=== PATIENT | female | born 1970 | race Caucasian/White ===

== ENCOUNTER 2016-12-05 09:08 | Emergency (ER) | payer MEDICARE, MEDICAID ==
[~2016-12-05] VITALS: Ht 144.8 cm; Wt 40.9 kg
[~2016-12-05 09:08] MED LIST: DOCU-174 PO; FLUO-191 PO; OLAN20TA2 PO; PANT40TA25 PO; ZIPR60CA2 PO
[2016-12-05] MEDS ORDERED: LEVO25TA9 PO (09:40)
[2016-12-05 11:15] VITALS: BP 113/85
== END 2016-12-05 11:30 | disposition home or self-care (01) ==
LOC: EMS 09:10
DX: S62.616A Displaced fracture of proximal phalanx of right little finger, initial encounter for closed fracture (principal); F17.210 Nicotine dependence, cigarettes, uncomplicated; F15.980 Other stimulant use, unspecified with stimulant-induced anxiety disorder; Z88.8 Allergy status to other drugs, medicaments and biological substances; W19.XXXA Unspecified fall, initial encounter; Y93.89 Activity, other specified; Y92.89 Other specified places as the place of occurrence of the external cause; Y99.8 Other external cause status
CPT/HCPCS: 99284

== ENCOUNTER 2017-10-03 20:54 | Emergency (ER) | payer MEDICARE, MEDICAID ==
[~2017-10-03] VITALS: Ht 144.8 cm; Wt 45.5 kg
[~2017-10-03 20:54] MED LIST changes: -DOCU-174 PO; +DOCU100C33 PO; +LEVO25TA9 PO
[2017-10-03 22:37] VITALS: BP 138/82
[2017-10-03] MEDS ORDERED: POVIDONE-IODINE 10% 15 ML SOLUTION UD TP ONE (23:00)
[2017-10-03] MEDS ORDERED: IBUPROFEN 800 MG TABLET PO ONE (23:00)
[2017-10-03] MEDS ORDERED: PERTUSS(ACELL),DIPH,TET VAC/PF 0.5 ML VIAL IM ONE (23:00)
== END 2017-10-03 23:20 | disposition home or self-care (01) ==
LOC: EMS 20:56
DX: S91.332A Puncture wound without foreign body, left foot, initial encounter (principal); E03.9 Hypothyroidism, unspecified; F17.210 Nicotine dependence, cigarettes, uncomplicated; F15.90 Other stimulant use, unspecified, uncomplicated; Z91.011 Allergy to milk products; W22.8XXA Striking against or struck by other objects, initial encounter; Y93.89 Activity, other specified; Y92.89 Other specified places as the place of occurrence of the external cause; Y99.8 Other external cause status
CPT/HCPCS: 90471; 90715; 99283

== ENCOUNTER 2017-10-13 05:08 | Emergency (ER) | payer MEDICARE, MEDICAID ==
[~2017-10-13] VITALS: Ht 152.4 cm; Wt 59.1 kg
[2017-10-13] MEDS ORDERED: HYDROGEN PEROXIDE 118 ML SOLUTION TP ONE (06:45)
[2017-10-13] MEDS ORDERED: IBUPROFEN 400 MG TABLET PO ONE (07:00)
[2017-10-13 08:04] VITALS: BP 128/80
== END 2017-10-13 09:05 | disposition home or self-care (01) ==
LOC: EMS 05:10
DX: S00.01XA Abrasion of scalp, initial encounter (principal); F17.210 Nicotine dependence, cigarettes, uncomplicated; F15.90 Other stimulant use, unspecified, uncomplicated; Z91.011 Allergy to milk products; W22.8XXA Striking against or struck by other objects, initial encounter; Y93.89 Activity, other specified; Y92.89 Other specified places as the place of occurrence of the external cause; Y99.8 Other external cause status
CPT/HCPCS: 99283

== ENCOUNTER 2018-10-25 13:55 | Emergency (ER) | payer MEDICARE, MEDICAID ==
[~2018-10-25] VITALS: Ht 149.9 cm; Wt 45.5 kg
[2018-10-25 14:01] VITALS: BP 124/92
== END 2018-10-25 16:52 | disposition left against medical advice (07) ==
LOC: EMS 13:55
DX: S01.511A Laceration without foreign body of lip, initial encounter (principal); F31.9 Bipolar disorder, unspecified; F17.210 Nicotine dependence, cigarettes, uncomplicated; F15.90 Other stimulant use, unspecified, uncomplicated; Z91.011 Allergy to milk products; Z85.3 Personal history of malignant neoplasm of breast; Y04.2XXA Assault by strike against or bumped into by another person, initial encounter; Y93.89 Activity, other specified; Y92.89 Other specified places as the place of occurrence of the external cause; Y99.8 Other external cause status

== ENCOUNTER 2019-04-29 00:46 | Emergency (ER) | payer MEDICARE, MEDICAID ==
[~2019-04-29] VITALS: Ht 149.9 cm; Wt 45.5 kg
[2019-04-29] MEDS ORDERED: OLAN10TA3 PO (01:13)
[2019-04-29] MEDS ORDERED: LEVO50 PO (01:14)
[2019-04-29] MEDS ORDERED: FLUO-191 PO (01:14)
[2019-04-29] MEDS ORDERED: PROPARACAINE HCL 0.5% 15 ML OPHTHALMIC SOLUTION OU ONE (04:00)
[2019-04-29] MEDS ORDERED: SODIUM CHLORIDE 0.9% 250 ML IRRIG SOLUTION BOTTLE IRRIG ONE (04:00)
[2019-04-29] MEDS ORDERED: PERTUSS(ACELL),DIPH,TET VAC/PF 0.5 ML VIAL IM ONE (04:00)
[2019-04-29] MEDS ORDERED: LIDOCAINE 1% 10 ML VIAL INJ ONE (05:45)
[2019-04-29 06:31] VITALS: BP 124/79
== END 2019-04-29 07:07 | disposition home or self-care (01) ==
LOC: EMS 00:46
DX: S02.2XXA Fracture of nasal bones, initial encounter for closed fracture (principal); S01.81XA Laceration without foreign body of other part of head, initial encounter; F31.9 Bipolar disorder, unspecified; Z90.710 Acquired absence of both cervix and uterus; Z91.011 Allergy to milk products; Y04.0XXA Assault by unarmed brawl or fight, initial encounter; Y93.89 Activity, other specified; Y92.098 Other place in other non-institutional residence as the place of occurrence of the external cause; Y99.8 Other external cause status
CPT/HCPCS: 12013; 70450; 70486; 81025; 90471; 90715; 99173; 99284; J3490

== ENCOUNTER 2019-05-08 10:56 | Emergency (ER) | payer MEDICARE, MEDICAID ==
[~2019-05-08] VITALS: Ht 149.9 cm; Wt 45.5 kg
[~2019-05-08 10:56] MED LIST changes: -DOCU100C33 PO; -LEVO25TA9 PO; +LEVO50 PO; +OLAN10TA3 PO; -OLAN20TA2 PO; -PANT40TA25 PO; -ZIPR60CA2 PO
[2019-05-08 12:15] VITALS: BP 124/78
== END 2019-05-08 13:02 | disposition home or self-care (01) ==
LOC: EMS 10:56
DX: S01.81XD Laceration without foreign body of other part of head, subsequent encounter (principal); F31.9 Bipolar disorder, unspecified; Z88.8 Allergy status to other drugs, medicaments and biological substances; Z48.02 Encounter for removal of sutures; X58.XXXD Exposure to other specified factors, subsequent encounter

== ENCOUNTER 2020-04-01 08:41 | Emergency (ER) | payer MEDICARE, MEDICAID ==
[~2020-04-01] VITALS: Ht 149.9 cm; Wt 43.2 kg
[2020-04-01 09:44] LABS: BASOPHILS % (AUTO) 0.6 % (0.0-2.0); EOSINOPHILS % (AUTO) 2.3 % (1.0-6.0); HEMATOCRIT 40.9 % (36-46); HEMOGLOBIN 13.5 g/dL (12.0-16.0); LYMPHOCYTES # (AUTO) 2.4 K/uL (1.0-4.8); LYMPHOCYTES % (AUTO) 36.8 % (22.0-44.0); MEAN CORPUSCULAR HEMOGLOBIN 30.2 pg (26.0-34.0); MEAN CORPUSCULAR HGB CONC 32.9 G/dL (31.0-37.0); MEAN CORPUSCULAR VOLUME 92 fL (80-100); MONOCYTES # (AUTO) 0.4 K/uL (0.1-1.0); MONOCYTES % (AUTO) 5.4 % (2.0-9.0); NEUTROPHILS # (AUTO) 3.7 K/uL (1.8-7.7); NEUTROPHILS % (AUTO) 54.9 % (40.0-70.0); PLATELET COUNT (AUTO) 421 K/uL (150-450); RED BLOOD CELL COUNT(AUTO) 4.45 MIL/uL (4.00-5.20); RED CELL DISTRIBUTION WIDTH 12.4 % (11.5-14.5)
[2020-04-01 09:57] LABS: ANION GAP 7 mmol/L (8-16); CALCIUM, TOTAL 9.1 mg/dL (8.8-10.5); CARBON DIOXIDE 31 mmol/L (22-29); CHLORIDE 102 mmol/L (98-107); CREATININE 0.86 mg/dL (0.60-1.30); GLOMERULAR FILTR. RATE CALC > 60 mL/min (>60); GLUCOSE,RANDOM 103 mg/dL (70-110); POTASSIUM 4.5 mmol/L (3.5-5.1); SODIUM SERUM 140 mmol/L (136-145); UREA NITROGEN, BLOOD 16 mg/dL (7-18)
[2020-04-01 10:09] LABS: ALANINE AMINOTRANSFERASE 44 U/L (12-78); ALKALINE PHOSPHATASE 59 U/L (46-116); ASPARTATE AMINOTRANSFERASE 27 U/L (15-37); BILIRUBIN,TOTAL 0.4 mg/dL (0.1-1.0); HCG,QUANTITATIVE 2 mIU/mL (0-6); TOTAL PROTEIN, SERUM 7.5 g/dL (6.4-8.2)
[2020-04-01 13:00] VITALS: BP 125/77
[2020-04-01] MEDS ORDERED: FLUoxetine HCL 20 MG CAPSULE PO ONE (13:30)
[2020-04-01] MEDS ORDERED: OLANZapine 5 MG TABLET PO ONE (13:30)
== END 2020-04-01 14:06 | disposition home or self-care (01) ==
LOC: EMS 08:46
DX: R22.2 Localized swelling, mass and lump, trunk (principal); F31.9 Bipolar disorder, unspecified; Z48.00 Encounter for change or removal of nonsurgical wound dressing; Z90.710 Acquired absence of both cervix and uterus; Z91.011 Allergy to milk products
CPT/HCPCS: 80053; 84702; 85025; 99285; G0480

== ENCOUNTER 2021-02-27 21:55 | Emergency (ER) | payer MEDICARE, MEDICAID ==
[~2021-02-27] VITALS: Ht 149.9 cm; Wt 45.5 kg
[2021-02-27] MEDS ORDERED: SULFAMETHOX/TRIMETH DS 800-160 MG/TABLET PO ONE (23:30)
[2021-02-27] MEDS ORDERED: CEPHALEXIN MONOHYDRATE 500 MG CAPSULE PO ONE (23:30)
[2021-02-27] MEDS ORDERED: LIDOCAINE/PF 2% 5 ML VIAL ID ONE (23:30)
[2021-02-27] MEDS ORDERED: PERTUSS(ACELL),DIPH,TET VAC/PF 0.5 ML SYRINGE IM. ONE (23:30)
[2021-02-27 23:45] VITALS: BP 132/88
[2021-02-28] MEDS ORDERED: IBUPROFEN 600 MG TABLET PO ONE
[2021-02-28] MEDS ORDERED: BACITRACIN 0.9 GM PACKET OINTMENT TP ONE (00:15)
== END 2021-02-28 00:15 | disposition home or self-care (01) ==
LOC: EMS 21:55
DX: L03.012 Cellulitis of left finger (principal); F31.9 Bipolar disorder, unspecified; Z91.011 Allergy to milk products
CPT/HCPCS: 10060; 73140; 90471; 90715; 99284; J3490

== ENCOUNTER 2021-05-11 14:36 | Emergency (ER) | payer MEDICARE, MEDICAID ==
[~2021-05-11] VITALS: Ht 149.9 cm; Wt 44.5 kg
[~2021-05-11 14:36] MED LIST changes: -OLAN10TA3 PO; +OLAN10TA74 PO
[2021-05-11] MEDS ORDERED: IBUPROFEN 600 MG TABLET PO ONE (15:45)
[2021-05-11 16:50] VITALS: BP 119/76
== END 2021-05-11 17:12 | disposition home or self-care (01) ==
LOC: EMS 14:36
DX: S13.4XXA Sprain of ligaments of cervical spine, initial encounter (principal); S09.90XA Unspecified injury of head, initial encounter; F31.9 Bipolar disorder, unspecified; F17.210 Nicotine dependence, cigarettes, uncomplicated; Z91.011 Allergy to milk products; V43.62XA Car passenger injured in collision with other type car in traffic accident, initial encounter; Y93.89 Activity, other specified; Y92.89 Other specified places as the place of occurrence of the external cause; Y99.8 Other external cause status
CPT/HCPCS: 70450; 72125; 99285

== ENCOUNTER 2021-08-27 14:49 | Emergency (ER) | payer MEDICARE, MEDICAID ==
[~2021-08-27] VITALS: Ht 149.9 cm; Wt 54.5 kg
[2021-08-27 14:56] VITALS: BP 101/70
== END 2021-08-27 15:48 | disposition home or self-care (01) ==
LOC: EMS 14:49
DX: L02.512 Cutaneous abscess of left hand (principal); F32.9 Major depressive disorder, single episode, unspecified; F17.210 Nicotine dependence, cigarettes, uncomplicated; Z91.011 Allergy to milk products
CPT/HCPCS: 99283; Z7502

== ENCOUNTER 2021-08-28 19:00 | Emergency (ER) | payer MEDICARE, MEDICAID ==
[~2021-08-28] VITALS: Ht 149.9 cm; Wt 44.5 kg
[2021-08-28 20:38] VITALS: BP 118/62
== END 2021-08-28 20:39 | disposition home or self-care (01) ==
LOC: EMS 19:00
DX: L02.512 Cutaneous abscess of left hand (principal); E03.9 Hypothyroidism, unspecified; F17.210 Nicotine dependence, cigarettes, uncomplicated
CPT/HCPCS: 99283; Z7502

== ENCOUNTER 2022-04-21 01:04 | Emergency (ER) | payer MEDICARE, MEDICAID ==
[~2022-04-21] VITALS: Ht 144.8 cm; Wt 44.5 kg
[~2022-04-21 01:04] MED LIST changes: +FLUO-177 PO; -FLUO-191 PO
[2022-04-21] MEDS ORDERED: LIDOCAINE 1% 10 ML VIAL ID ONE (02:15)
[2022-04-21 02:45] VITALS: BP 106/64
[2022-04-21] MEDS ORDERED: LIDOCAINE/PF 1% 2 ML VIAL ONE (03:00)
[2022-04-21] MEDS ORDERED: CEPH-558 PO (03:55)
== END 2022-04-21 04:18 | disposition home or self-care (01) ==
LOC: EMS 01:05
DX: L73.9 Follicular disorder, unspecified (principal); F31.9 Bipolar disorder, unspecified; E03.9 Hypothyroidism, unspecified; F17.210 Nicotine dependence, cigarettes, uncomplicated; Z88.8 Allergy status to other drugs, medicaments and biological substances; Z79.899 Other long term (current) drug therapy
CPT/HCPCS: 99284; J3490

== ENCOUNTER 2023-05-24 16:54 | Emergency (ER) | payer MEDICARE, MEDICAID ==
[~2023-05-24] VITALS: Ht 149.9 cm; Wt 45.5 kg
[~2023-05-24 16:54] MED LIST changes: +ACET-66 PO; +IBUP-1492 PO
[2023-05-24 17:19] VITALS: BP 126/96; PULSE 107; RESP 18; TEMP 98.4
[2023-05-24] MEDS ORDERED: KETOROLAC TROMETHAMINE 30 MG/ML VIAL IM ONE (17:45)
== END 2023-05-24 18:27 | disposition home or self-care (01) ==
LOC: EMS 17:02
DX: J34.0 Abscess, furuncle and carbuncle of nose (principal); F31.9 Bipolar disorder, unspecified; E03.9 Hypothyroidism, unspecified; F20.9 Schizophrenia, unspecified; F17.210 Nicotine dependence, cigarettes, uncomplicated; F12.90 Cannabis use, unspecified, uncomplicated; Z98.51 Tubal ligation status; Z90.10 Acquired absence of unspecified breast and nipple; Z98.890 Other specified postprocedural states
CPT/HCPCS: 99283; 96372; J1885

== ENCOUNTER 2023-11-05 12:55 | Emergency (ER) | payer MEDICARE, MEDICAID ==
[~2023-11-05] VITALS: Ht 149.9 cm; Wt 44.5 kg
[2023-11-05 12:57] VITALS: TEMP 98.1
[2023-11-05 14:00] VITALS: BP 154/90; PULSE 82; RESP 16
== END 2023-11-05 14:11 | disposition home or self-care (01) ==
LOC: EMS 12:55
DX: R11.2 Nausea with vomiting, unspecified (principal); T88.7XXA Unspecified adverse effect of drug or medicament, initial encounter; F31.9 Bipolar disorder, unspecified; F32.A Depression, unspecified; E03.9 Hypothyroidism, unspecified; F20.9 Schizophrenia, unspecified; F17.210 Nicotine dependence, cigarettes, uncomplicated; F15.90 Other stimulant use, unspecified, uncomplicated; Z98.51 Tubal ligation status; Z98.890 Other specified postprocedural states
CPT/HCPCS: 99281; Z7502

== ENCOUNTER 2023-12-20 16:06 | Inpatient (IN) | payer MEDICARE, MEDICAID ==
[~2023-12-20] VITALS: Ht 142.2 cm; Wt 47.3 kg
[2023-12-20 18:18] LABS: BASOPHILS % (AUTO) 0.6 % (0.0-2.0); EOSINOPHILS % (AUTO) 1.3 % (1.0-6.0); HEMATOCRIT 33.2 % (36-46); HEMOGLOBIN 11.5 g/dL (12.0-16.0); LYMPHOCYTES # (AUTO) 2.9 K/uL (1.0-4.8); LYMPHOCYTES % (AUTO) 34.4 % (22.0-44.0); MEAN CORPUSCULAR HEMOGLOBIN 31.2 pg (26.0-34.0); MEAN CORPUSCULAR HGB CONC 34.5 G/dL (31.0-37.0); MEAN CORPUSCULAR VOLUME 90 fL (80-100); MONOCYTES # (AUTO) 0.7 K/uL (0.1-1.0); MONOCYTES % (AUTO) 8.1 % (2.0-9.0); NEUTROPHILS # (AUTO) 4.7 K/uL (1.8-7.7); NEUTROPHILS % (AUTO) 55.6 % (40.0-70.0); PLATELET COUNT (AUTO) 484 K/uL (150-450); RED BLOOD CELL COUNT(AUTO) 3.68 MIL/uL (4.00-5.20); RED CELL DISTRIBUTION WIDTH 12.8 % (11.5-14.5); WHITE BLOOD COUNT (AUTO) 8.4 K/uL (4.5-11.0)
[2023-12-20 18:31] LABS: ANION GAP 8 mmol/L (8-16); CALCIUM, TOTAL 9.8 mg/dL (8.8-10.5); CARBON DIOXIDE 30 mmol/L (22-29); CHLORIDE 103 mmol/L (98-107); CREATININE 0.93 mg/dL (0.60-1.30); GLOMERULAR FILTR. RATE CALC > 60 mL/min (>60); GLUCOSE,RANDOM 95 mg/dL (70-110); POTASSIUM 3.6 mmol/L (3.5-5.1); SODIUM SERUM 141 mmol/L (136-145); UREA NITROGEN, BLOOD 26 mg/dL (7-18)
[2023-12-20 18:37] LABS: ALANINE AMINOTRANSFERASE 39 U/L (12-78); ALBUMIN 3.8 g/dL (3.4-5.0); ALKALINE PHOSPHATASE 84 U/L (46-116); ASPARTATE AMINOTRANSFERASE 37 U/L (15-37); BILIRUBIN,TOTAL 0.4 mg/dL (0.1-1.0); TOTAL PROTEIN, SERUM 7.7 g/dL (6.4-8.2)
[2023-12-20 18:50] LABS: ALCOHOL, BLOOD (SERUM) < 3 mg/dL (0-10)
[2023-12-20 18:56] LABS: COVID AG,FIA SOURCE NASAL SWAB
[2023-12-20 19:31] LABS: SARS-COV2 (COVID) ANTIGEN,FIA Negative (Negative)
[2023-12-20] MEDS: OLANZapine 5 MG TABLET PO ONE (21:25)
[2023-12-21 02:25] VITALS: BP 113/60; PULSE 67; RESP 18; TEMP 97.2
[2023-12-21] MEDS ORDERED: INFLUENZA VIRUS VACCINE QVS 2023-24 (6MO+)/PF 60 MCG/0.5 ML SYRINGE IM. ONE (04:30)
[2023-12-21 08:37] LABS: HEMOGLOBIN A1C 5.8 % (3.8-5.6)
[2023-12-21 08:58] LABS: CHOL/HDL RATIO 2.1 (3.9-5.7); FREE T4 (FREE THYROXINE) 1.09 ng/dL (0.76-1.46); THYROID STIMULATING HORMONE 3.46 uIU/mL (0.36-3.74)
[2023-12-21] MEDS: FLUoxetine HCL 20 MG CAPSULE PO SCH (10:25)
[2023-12-21] MEDS: OLANZapine 10 MG TABLET PO SCH (10:25)
[2023-12-21] MEDS ORDERED: GuaiFENesin/D-METHORPHAN [SUGAR-FREE] 200-20MG/10 ML SYRUP UDCUP PO PRN (12:00)
[2023-12-21] MEDS ORDERED: CloNIDine HCL 0.1 MG TABLET PO PRN (12:00)
[2023-12-21] MEDS ORDERED: ACETAMINOPHEN 325 MG TABLET PO PRN (12:00)
[2023-12-21] MEDS ORDERED: PETROLATUM,WHITE 28 GM JELLY TP PRN (12:00)
[2023-12-21] MEDS ORDERED: DOCUSATE SODIUM 100 MG CAPSULE PO PRN (12:00)
[2023-12-21] MEDS ORDERED: MAGNESIUM HYDROXIDE SUSPENSION 30 ML UDCUP PO PRN (12:00)
[2023-12-21] MEDS ORDERED: ONDANSETRON HCL 4 MG TABLET PO PRN (12:00)
[2023-12-21] MEDS ORDERED: ALBUTEROL SULFATE HFA 90 MCG/PUFF 8 GM INHALER IH PRN (12:00)
[2023-12-21] MEDS ORDERED: MAG HYDROX/ALUMINUM HYD/SIMETH ES 30 ML SUSPENSION UDCUP PO PRN (12:00)
[2023-12-21] MEDS ORDERED: LOPERAMIDE HCL 2 MG CAPSULE PO PRN (12:00)
[2023-12-21] MEDS ORDERED: IBUPROFEN 400 MG TABLET PO PRN (12:00)
[2023-12-21 21:23] VITALS: BP 96/60; PULSE 68; TEMP 98; O2SAT 96
[2023-12-22] MEDS: LEVOTHYROXINE SODIUM 50 MCG TABLET PO SCH (06:39)
[2023-12-22 08:29] VITALS: RESP 18
[2023-12-22 20:38] VITALS: BP 113/75; PULSE 70; RESP 17; TEMP 98.4; O2SAT 97
[2023-12-23] MEDS: ZOLPIDEM TARTRATE 10 MG TABLET PO PRN (03:02)
[2023-12-23 08:17] VITALS: BP 117/69; PULSE 79; RESP 16; TEMP 98; O2SAT 98
[2023-12-23] MEDS: LORazepam 2 MG TABLET PO PRN (15:54)
[2023-12-23 20:04] VITALS: RESP 17
[2023-12-23] MEDS: OLANZapine 10 MG TABLET PO SCH (20:10)
[2023-12-24 23:42] VITALS: RESP 17
[2023-12-25 08:16] VITALS: BP 110/69; PULSE 79; RESP 16; TEMP 97.8; O2SAT 96
[2023-12-25 09:21] LABS: ALANINE AMINOTRANSFERASE 22 U/L (12-78); ALBUMIN 3.4 g/dL (3.4-5.0); ALKALINE PHOSPHATASE 72 U/L (46-116); ANION GAP 4 mmol/L (8-16); ASPARTATE AMINOTRANSFERASE 17 U/L (15-37); BILIRUBIN,TOTAL 0.4 mg/dL (0.1-1.0); CALCIUM, TOTAL 9.7 mg/dL (8.8-10.5); CARBON DIOXIDE 31 mmol/L (22-29); CHLORIDE 99 mmol/L (98-107); CHOLESTEROL 225 mg/dL (131-200); CREATININE 0.68 mg/dL (0.60-1.30); FREE T4 (FREE THYROXINE) 0.97 ng/dL (0.76-1.46); GLOMERULAR FILTR. RATE CALC > 60 mL/min (>60); GLUCOSE,RANDOM 182 mg/dL (70-110); HDL CHOLESTEROL 76 mg/dL (40-60); LDL CHOL (CALC.) 133 mg/dL (0-130); POTASSIUM 4.7 mmol/L (3.5-5.1); SODIUM SERUM 134 mmol/L (136-145); THYROID STIMULATING HORMONE 2.39 uIU/mL (0.36-3.74); TOTAL PROTEIN, SERUM 7.8 g/dL (6.4-8.2); TRIGLYCERIDES 81 mg/dL (15-150); UREA NITROGEN, BLOOD 22 mg/dL (7-18)
[2023-12-25 20:29] VITALS: BP 125/67; PULSE 121; RESP 15; TEMP 98.6; O2SAT 95
[2023-12-26 08:20] VITALS: BP 125/78; PULSE 100; RESP 16; TEMP 98.2; O2SAT 99
[2023-12-26] MEDS: NICOTINE 14 MG/24 HOUR PATCH TD PRN (10:24)
[2023-12-26] MEDS ORDERED: LEVO50 PO (12:52)
[2023-12-26] MEDS ORDERED: OLAN10TA74 PO (12:52)
[2023-12-26] MEDS ORDERED: FLUO20CA36 PO (12:52)
== END 2023-12-26 16:20 | disposition home or self-care (01) | DRG 885 ==
LOC: EMS 16:12 → B3A 12-21 00:27
PROVIDERS: ADMIT Psychiatry & Neurology Psychiatry; ATTEND Psychiatry & Neurology Psychiatry
PROC: GZHZZZZ Group Psychotherapy (ICD-10-PCS; principal; 2023-12-24)
PROC: GZ51ZZZ Individual Psychotherapy, Behavioral (ICD-10-PCS; 2023-12-24)
DX: F20.0 Paranoid schizophrenia (principal); R45.851 Suicidal ideations; G47.00 Insomnia, unspecified; Z20.822 Contact with and (suspected) exposure to COVID-19; D64.9 Anemia, unspecified; E03.9 Hypothyroidism, unspecified; F15.10 Other stimulant abuse, uncomplicated; Z87.891 Personal history of nicotine dependence
CPT/HCPCS: 80053; 80061; 83036; 84439; 84443; 84703; 85025; 99285; G0480

== ENCOUNTER 2024-08-19 06:05 | Emergency (ER) | payer MEDICARE, MEDICAID ==
[~2024-08-19] VITALS: Ht 149.9 cm; Wt 44.5 kg
[~2024-08-19 06:05] MED LIST changes: -ACET-66 PO; +AMOX-457 PO; +DOXY-354 PO; -FLUO-177 PO; +FLUO-418 PO; -IBUP-1492 PO; +IBUP-1554 PO
[2024-08-19 06:14] VITALS: TEMP 98.9
[2024-08-19 07:00] LABS: BASOPHILS % (AUTO) 0.6 % (0.0-2.0); EOSINOPHILS % (AUTO) 1.6 % (1.0-6.0); HEMATOCRIT 39.7 % (36-46); HEMOGLOBIN 13.3 g/dL (12.0-16.0); LYMPHOCYTES # (AUTO) 2.1 K/uL (1.0-4.8); LYMPHOCYTES % (AUTO) 35.9 % (22.0-44.0); MEAN CORPUSCULAR HEMOGLOBIN 30.7 pg (26.0-34.0); MEAN CORPUSCULAR HGB CONC 33.5 G/dL (31.0-37.0); MEAN CORPUSCULAR VOLUME 92 fL (80-100); MONOCYTES # (AUTO) 0.3 K/uL (0.1-1.0); MONOCYTES % (AUTO) 5.6 % (2.0-9.0); NEUTROPHILS # (AUTO) 3.3 K/uL (1.8-7.7); NEUTROPHILS % (AUTO) 56.3 % (40.0-70.0); PLATELET COUNT (AUTO) 503 K/uL (150-450); RED BLOOD CELL COUNT(AUTO) 4.32 MIL/uL (4.00-5.20); RED CELL DISTRIBUTION WIDTH 13.2 % (11.5-14.5); WHITE BLOOD COUNT (AUTO) 5.9 K/uL (4.5-11.0)
[2024-08-19 07:09] LABS: ANION GAP 6 mmol/L (8-16); CALCIUM, TOTAL 9.3 mg/dL (8.8-10.5); CARBON DIOXIDE 30 mmol/L (22-29); CHLORIDE 104 mmol/L (98-107); GLOMERULAR FILTR. RATE CALC > 60 mL/min (>60); GLUCOSE,RANDOM 126 mg/dL (70-110); POTASSIUM 4.1 mmol/L (3.5-5.1); SODIUM SERUM 140 mmol/L (136-145); UREA NITROGEN, BLOOD 19 mg/dL (7-18)
[2024-08-19 07:14] LABS: ALANINE AMINOTRANSFERASE 26 U/L (12-78); ALBUMIN 3.5 g/dL (3.4-5.0); ALKALINE PHOSPHATASE 79 U/L (46-116); ASPARTATE AMINOTRANSFERASE 17 U/L (15-37); BILIRUBIN,TOTAL 0.5 mg/dL (0.1-1.0); LIPASE 38 U/L (16-77); TOTAL PROTEIN, SERUM 7.3 g/dL (6.4-8.2)
[2024-08-19 08:22] LABS: APPEARANCE,URINE CLEAR (CLEAR); BILIRUBIN,URINE NEGATIVE (NEGATIVE); COLOR,URINE YELLOW (YELLOW); GLUCOSE, URINE (UA) NEGATIVE (NEGATIVE); KETONES,URINE NEGATIVE (NEGATIVE); LEUKOCYTE ESTERASE ,URINE NEGATIVE (NEGATIVE); NITRATE,URINE NEGATIVE (NEGATIVE); OCCULT BLOOD,URINE TRACE (NEGATIVE); PROTEIN,URINE TRACE mg/dL (NEGATIVE); SPECIFIC GRAVITIY, URINE 1.024 (1.003-1.030); UROBILINOGEN,URINE <=1.0 mg/dL (<=1.0)
[2024-08-19 08:32] LABS: BACTERIA,URINE None Seen /HPF (None Seen); RBC,URINE 0-2 /HPF (0-2); SQUAMOUS EPITHELIAL CELL,UR Few /LPF (None Seen); WBC,URINE 0-2 /HPF (0-5)
[2024-08-19 08:40] VITALS: BP 131/92; PULSE 95; RESP 16; O2SAT 98
== END 2024-08-19 09:13 | disposition home or self-care (01) ==
LOC: EMS 06:05
DX: K59.00 Constipation, unspecified (principal); F31.9 Bipolar disorder, unspecified; E03.9 Hypothyroidism, unspecified; F17.210 Nicotine dependence, cigarettes, uncomplicated; Z98.51 Tubal ligation status; F15.90 Other stimulant use, unspecified, uncomplicated; Z98.890 Other specified postprocedural states
CPT/HCPCS: 80048; 80076; 81001; 83690; 85025; 99283

== ENCOUNTER 2024-08-28 19:59 | Emergency (ER) | payer MEDICARE, MEDICAID ==
[~2024-08-28] VITALS: Ht 149.9 cm; Wt 44.5 kg
[~2024-08-28 19:59] MED LIST changes: -AMOX-457 PO; -DOXY-354 PO
[2024-08-28 20:04] VITALS: TEMP 98.3
[2024-08-28 22:12] LABS: COVID AG,FIA SOURCE NASAL SWAB
[2024-08-28 22:18] LABS: BASOPHILS % (AUTO) 0.7 % (0.0-2.0); EOSINOPHILS % (AUTO) 2.2 % (1.0-6.0); HEMATOCRIT 35.1 % (36-46); HEMOGLOBIN 11.9 g/dL (12.0-16.0); LYMPHOCYTES # (AUTO) 3.2 K/uL (1.0-4.8); LYMPHOCYTES % (AUTO) 40.5 % (22.0-44.0); MEAN CORPUSCULAR HEMOGLOBIN 30.7 pg (26.0-34.0); MEAN CORPUSCULAR HGB CONC 33.9 G/dL (31.0-37.0); MEAN CORPUSCULAR VOLUME 91 fL (80-100); MONOCYTES # (AUTO) 0.5 K/uL (0.1-1.0); MONOCYTES % (AUTO) 6.3 % (2.0-9.0); NEUTROPHILS % (AUTO) 50.3 % (40.0-70.0); PLATELET COUNT (AUTO) 456 K/uL (150-450); RED BLOOD CELL COUNT(AUTO) 3.88 MIL/uL (4.00-5.20); RED CELL DISTRIBUTION WIDTH 13.2 % (11.5-14.5); WHITE BLOOD COUNT (AUTO) 7.9 K/uL (4.5-11.0)
[2024-08-28 22:31] LABS: SARS-COV2 (COVID) ANTIGEN,FIA Negative (Negative)
[2024-08-28 22:39] LABS: ANION GAP 8 mmol/L (8-16); CALCIUM, TOTAL 8.8 mg/dL (8.8-10.5); CARBON DIOXIDE 28 mmol/L (22-29); CHLORIDE 104 mmol/L (98-107); CREATININE 0.73 mg/dL (0.60-1.30); GLOMERULAR FILTR. RATE CALC > 60 mL/min (>60); GLUCOSE,RANDOM 90 mg/dL (70-110); POTASSIUM 3.4 mmol/L (3.5-5.1); SODIUM SERUM 140 mmol/L (136-145); UREA NITROGEN, BLOOD 21 mg/dL (7-18)
[2024-08-28 22:42] LABS: ALCOHOL, BLOOD (SERUM) < 3 mg/dL (0-10)
[2024-08-28] MEDS: OLANZapine 10 MG TABLET PO ONE (23:21)
[2024-08-29] MEDS: POTASSIUM CHLORIDE 20 MEQ ER TABLET PO ONE (01:30)
[2024-08-29 04:47] VITALS: BP 125/84; PULSE 82; RESP 14; O2SAT 98
== END 2024-08-29 05:13 | disposition home or self-care (01) ==
LOC: EMS 19:59
DX: F31.9 Bipolar disorder, unspecified (principal); E87.6 Hypokalemia; F22 Delusional disorders; F41.9 Anxiety disorder, unspecified; E03.9 Hypothyroidism, unspecified; F17.210 Nicotine dependence, cigarettes, uncomplicated; F15.90 Other stimulant use, unspecified, uncomplicated; Z98.51 Tubal ligation status; Z98.890 Other specified postprocedural states; Z20.822 Contact with and (suspected) exposure to COVID-19
CPT/HCPCS: 99283; 87426; 80048; 85025; 36415; G0480

== ENCOUNTER 2025-06-09 02:36 | Emergency (ER) | payer MEDICARE, MEDICAID ==
[~2025-06-09] VITALS: Ht 144.8 cm; Wt 41.4 kg
[2025-06-09 03:05] VITALS: BP 139/95; PULSE 90; RESP 16; TEMP 97.9; O2SAT 100
== END 2025-06-09 03:54 | disposition left against medical advice (07) ==
LOC: EMS 02:36
DX: R21 Rash and other nonspecific skin eruption (principal); Z53.21 Procedure and treatment not carried out due to patient leaving prior to being seen by health care provider

== ENCOUNTER 2025-06-15 01:03 | Emergency (ER) | payer MEDICARE, MEDICAID ==
[~2025-06-15] VITALS: Ht 144.8 cm; Wt 40.9 kg
[2025-06-15 03:10] VITALS: TEMP 97.905272
[2025-06-15] MEDS ORDERED: SULF1TAB42 PO (04:09)
[2025-06-15 04:10] VITALS: BP 118/81; PULSE 86; RESP 19; O2SAT 99
[2025-06-15] MEDS: LIDOCAINE/PF 1% 2 ML VIAL IM ONE (04:15)
[2025-06-15] MEDS: CefTRIAXone SODIUM 1 GM/VIAL IM ONE (04:15)
== END 2025-06-15 05:48 | disposition home or self-care (01) ==
LOC: EMS 05:29
DX: N61.0 Mastitis without abscess (principal); F31.9 Bipolar disorder, unspecified; E03.9 Hypothyroidism, unspecified; F17.210 Nicotine dependence, cigarettes, uncomplicated; F15.90 Other stimulant use, unspecified, uncomplicated; Z98.51 Tubal ligation status; Z90.13 Acquired absence of bilateral breasts and nipples; Z85.3 Personal history of malignant neoplasm of breast; Z79.899 Other long term (current) drug therapy
CPT/HCPCS: 99283; 96372; J0696; J3490

== ENCOUNTER 2025-07-20 17:27 | Emergency (ER) | payer MEDICARE, MEDICAID ==
[~2025-07-20 17:27] MED LIST changes: +SULF1TAB42 PO
== END 2025-07-20 19:48 | disposition left against medical advice (07) ==
LOC: EMS 17:27
DX: R44.2 Other hallucinations (principal); Z53.21 Procedure and treatment not carried out due to patient leaving prior to being seen by health care provider
CPT/HCPCS: 99281; Z7502

== ENCOUNTER 2025-07-20 20:25 | Emergency (ER) | payer MEDICARE, MEDICAID ==
[~2025-07-20] VITALS: Ht 149.9 cm; Wt 38.6 kg
[2025-07-20 22:30] LABS: PLATELET COUNT (AUTO) 467 K/uL (150-450); RED BLOOD CELL COUNT(AUTO) 4.02 MIL/uL (4.00-5.20); RED CELL DISTRIBUTION WIDTH 13.1 % (11.5-14.5); WHITE BLOOD COUNT (AUTO) 8.0 K/uL (4.5-11.0)
[2025-07-20 22:33] LABS: CALCIUM, TOTAL 9.0 mg/dL (8.8-10.5); CREATININE 0.69 mg/dL (0.60-1.30); GLOMERULAR FILTR. RATE CALC > 60 mL/min (>60); GLUCOSE,RANDOM 127 mg/dL (70-110); SODIUM SERUM 138 mmol/L (136-145); UREA NITROGEN, BLOOD 31 mg/dL (7-18)
[2025-07-20 23:19] VITALS: BP 123/88; PULSE 88; RESP 17; TEMP 97.8; O2SAT 98
[2025-07-20 23:19] LABS: COVID AG,FIA SOURCE NASAL SWAB
[2025-07-20 23:24] LABS: SARS-COV2 (COVID) ANTIGEN,FIA Negative (Negative)
== END 2025-07-21 00:59 | disposition home or self-care (01) ==
LOC: EMS 20:25
DX: F15.10 Other stimulant abuse, uncomplicated (principal); E03.9 Hypothyroidism, unspecified; F31.9 Bipolar disorder, unspecified; F17.210 Nicotine dependence, cigarettes, uncomplicated; Z79.899 Other long term (current) drug therapy; Z85.3 Personal history of malignant neoplasm of breast; Z90.11 Acquired absence of right breast and nipple; Z98.51 Tubal ligation status; Z20.822 Contact with and (suspected) exposure to COVID-19
CPT/HCPCS: 99283; 87426; 80048; 85025; 36415; G0480

== ENCOUNTER 2025-08-02 06:37 | Emergency (ER) | payer MEDICARE, MEDICAID ==
[~2025-08-02] VITALS: Ht 144.8 cm; Wt 38.6 kg
[2025-08-02 06:49] VITALS: BP 119/86; PULSE 97; RESP 18; TEMP 98.2; O2SAT 99
== END 2025-08-02 08:34 | disposition left against medical advice (07) ==
LOC: EMS 06:37
DX: F31.9 Bipolar disorder, unspecified (principal); E03.9 Hypothyroidism, unspecified; F17.210 Nicotine dependence, cigarettes, uncomplicated; F15.90 Other stimulant use, unspecified, uncomplicated; Z79.899 Other long term (current) drug therapy; Z85.3 Personal history of malignant neoplasm of breast; Z90.11 Acquired absence of right breast and nipple; Z98.51 Tubal ligation status
CPT/HCPCS: 99282; Z7502

== ENCOUNTER 2025-08-02 09:25 | Emergency (ER) | payer MEDICARE, MEDICAID ==
[~2025-08-02] VITALS: Ht 147.3 cm; Wt 45.5 kg
[2025-08-02 09:34] VITALS: BP 116/86; PULSE 103; RESP 18; TEMP 98.1; O2SAT 99
[2025-08-02 11:14] LABS: PLATELET COUNT (AUTO) 406 K/uL (150-450); RED BLOOD CELL COUNT(AUTO) 3.72 MIL/uL (4.00-5.20); RED CELL DISTRIBUTION WIDTH 13.0 % (11.5-14.5); WHITE BLOOD COUNT (AUTO) 6.7 K/uL (4.5-11.0)
[2025-08-02 11:28] LABS: CALCIUM, TOTAL 8.9 mg/dL (8.8-10.5); CREATININE 0.45 mg/dL (0.60-1.30); GLOMERULAR FILTR. RATE CALC > 60 mL/min (>60); GLUCOSE,RANDOM 104 mg/dL (70-110); SODIUM SERUM 140 mmol/L (136-145); UREA NITROGEN, BLOOD 14 mg/dL (7-18)
== END 2025-08-02 12:47 ==
LOC: EMS 09:25
DX: S30.11XA Contusion of abdominal wall, initial encounter (principal); F31.9 Bipolar disorder, unspecified; E03.9 Hypothyroidism, unspecified; F17.210 Nicotine dependence, cigarettes, uncomplicated; F15.90 Other stimulant use, unspecified, uncomplicated; Z59.00 Homelessness unspecified; Z79.899 Other long term (current) drug therapy; Z85.3 Personal history of malignant neoplasm of breast; Z90.11 Acquired absence of right breast and nipple; Z98.51 Tubal ligation status; Z91.0110 Allergy to milk products, unspecified; X58.XXXA Exposure to other specified factors, initial encounter; Y93.89 Activity, other specified; Y92.89 Other specified places as the place of occurrence of the external cause; Y99.8 Other external cause status
CPT/HCPCS: 99285; 80048; 84703; 85025; 36415; G0480

== ENCOUNTER 2025-08-13 18:23 | Emergency (ER) | payer MEDICARE, MEDICAID ==
[~2025-08-13] VITALS: Ht 144.8 cm; Wt 47.7 kg
[2025-08-13 18:50] VITALS: BP 105/80; PULSE 98; RESP 18; TEMP 98.1; O2SAT 99
[2025-08-13] MEDS ORDERED: CALC500T37 PO (19:22)
[2025-08-13] MEDS ORDERED: SULF1TAB94 PO (19:22)
[2025-08-13] MEDS: SULFAMETHOX/TRIMETH DS 800-160 MG/TABLET PO ONE (20:09)
[2025-08-13] MEDS: CALCIUM CARBONATE 500 MG CHEWABLE TABLET CHEW ONE (20:09)
[2025-08-13] MEDS: BACITRACIN 0.9 GM PACKET OINTMENT TP ONE (20:10)
== END 2025-08-13 20:16 | disposition home or self-care (01) ==
LOC: EMS 18:23
DX: L98.499 Non-pressure chronic ulcer of skin of other sites with unspecified severity (principal); S60.921A Unspecified superficial injury of right hand, initial encounter; K21.9 Gastro-esophageal reflux disease without esophagitis; F31.9 Bipolar disorder, unspecified; F17.210 Nicotine dependence, cigarettes, uncomplicated; F15.90 Other stimulant use, unspecified, uncomplicated; Z90.11 Acquired absence of right breast and nipple; Z85.3 Personal history of malignant neoplasm of breast; Z79.899 Other long term (current) drug therapy; X58.XXXA Exposure to other specified factors, initial encounter; Y93.89 Activity, other specified; Y92.89 Other specified places as the place of occurrence of the external cause; Y99.8 Other external cause status
CPT/HCPCS: 99283

== ENCOUNTER 2025-08-31 09:24 | Emergency (ER) | payer MEDICARE, MEDICAID ==
[~2025-08-31] VITALS: Ht 144.8 cm; Wt 40.0 kg
[~2025-08-31 09:24] MED LIST changes: +CALC500T37 PO; +SULF1TAB94 PO
[2025-08-31] MEDS: ACETAMINOPHEN 500 MG TABLET PO ONE (13:14)
[2025-08-31] MEDS: KETOROLAC TROMETHAMINE 30 MG/ML VIAL IM ONE (13:14)
[2025-08-31 13:15] VITALS: BP 112/96; PULSE 99; RESP 18; TEMP 97.7; O2SAT 100
[2025-08-31] MEDS ORDERED: IBUP-1492 PO (13:17)
[2025-08-31] MEDS ORDERED: ACET-2247 PO (13:17)
== END 2025-08-31 13:36 | disposition home or self-care (01) ==
LOC: EMS 09:24
DX: S92.354A Nondisplaced fracture of fifth metatarsal bone, right foot, initial encounter for closed fracture (principal); F31.9 Bipolar disorder, unspecified; F15.90 Other stimulant use, unspecified, uncomplicated; F17.210 Nicotine dependence, cigarettes, uncomplicated; Z85.3 Personal history of malignant neoplasm of breast; Z90.11 Acquired absence of right breast and nipple; Z79.899 Other long term (current) drug therapy; W22.8XXA Striking against or struck by other objects, initial encounter; Y93.89 Activity, other specified; Y92.89 Other specified places as the place of occurrence of the external cause; Y99.8 Other external cause status
CPT/HCPCS: 99283; 73630; 96372; J1885

== ENCOUNTER 2025-10-09 09:21 | Emergency (ER) | payer MEDICARE, MEDICAID ==
[~2025-10-09] VITALS: Ht 144.8 cm; Wt 44.5 kg
[~2025-10-09 09:21] MED LIST changes: +ACET-2247 PO; +IBUP-1492 PO; -IBUP-1554 PO; -SULF1TAB42 PO
[2025-10-09 09:34] VITALS: TEMP 96.9
[2025-10-09] MEDS: ACETAMINOPHEN 325 MG TABLET PO ONE (09:45)
[2025-10-09] MEDS: IBUPROFEN 400 MG TABLET PO ONE (09:45)
[2025-10-09] MEDS: MAG HYDROX/ALUMINUM HYD/SIMETH 30 ML SUSPENSION UDCUP PO ONE (10:00)
[2025-10-09] MEDS: FAMOTIDINE 20 MG TABLET PO ONE (10:00)
[2025-10-09 11:15] VITALS: BP 121/77; PULSE 89; RESP 17; O2SAT 99
[2025-10-09] MEDS ORDERED: IBUP-1506 PO (11:17)
[2025-10-09] MEDS ORDERED: ACET-2247 PO (11:17)
== END 2025-10-09 12:19 | disposition home or self-care (01) ==
LOC: EMS 09:21
DX: S63.601A Unspecified sprain of right thumb, initial encounter (principal); F31.9 Bipolar disorder, unspecified; F17.210 Nicotine dependence, cigarettes, uncomplicated; F15.90 Other stimulant use, unspecified, uncomplicated; Z90.11 Acquired absence of right breast and nipple; Z85.3 Personal history of malignant neoplasm of breast; Z79.899 Other long term (current) drug therapy; Z91.0110 Allergy to milk products, unspecified; W19.XXXA Unspecified fall, initial encounter; Y93.89 Activity, other specified; Y92.89 Other specified places as the place of occurrence of the external cause; Y99.8 Other external cause status
CPT/HCPCS: 99284; 73140-TC; Z7502; Z7610